=== PATIENT | female | born 1995 | race Caucasian/White ===

== ENCOUNTER 2021-11-23 18:57 | Emergency (ER) | payer OTHER, SELFPAY ==
[2021-11-23 19:01] VITALS: BP 127/88; PULSE 99; RESP 16; TEMP 36.3; O2SAT 99
--- NOTE | 2021-11-23 19:27 | ED.GENADULT ---
HPI - General Adult General Chief complaint: Headache Stated complaint: headache Time Seen by Provider: 11/23/21 19:17 History of Present Illness HPI narrative: Patient is a 26-year-old female who presents ER with headache. Left-sided throbbing and aching. Ongoing for 2 weeks. No photophobia or phonophobia. No history of migraines. No trauma. Endorses mild sinus congestion. No ringing in the ears or dizziness. No nausea or vomiting. She has no upper or lower extremity numbness or tingling. She has tried taking extra strength Tylenol without improvement. Patient took test yesterday and discovered that she is in fact . LMP 4 to 6 weeks ago. She is a G3, P2. She had Depo-Provera injection 8 months ago and has had irregular periods since then. Related Data Allergies Allergy/AdvReac Type Severity Reaction Status Date / Time amoxicillin AdvReac Hives Verified 11/23/21 19:05 Review of Systems Review of Systems: All systems reviewed & are unremarkable except as noted in HPI and below Constitutional: Constitutional: Denies chills and Denies fever(s) ENT: Denies dizziness, Reports nasal congestion and Denies sore throat Respiratory: Respiratory: Denies cough and Denies dyspnea Gastrointestinal: Gastrointestinal: Denies abdominal pain, Denies diarrhea, Denies nausea and Denies vomiting Genitourinary: Genitourinary: Denies abnormal vaginal bleeding, Denies nocturia, Denies dysuria and Denies flank pain Neurologic: Denies dizziness, Denies syncope, Reports headache(s), Denies focal weakness and Denies numbness PMFSH Past Medical History Medical History (Updated 11/23/21 @ 21:39 by Giovanni Dahl MD) Healthy female adult Surgical History Surgical History (Updated 11/23/21 @ 20:39 by Giovanni Dahl MD) No history of previous surgery Social History Social History (Updated 11/23/21 @ 20:39 by Giovanni Dahl MD) Smoking status: Current every day smoker Exam Narrative: GENERAL: Well-appearing, well-nourished, and in no acute distress. HEAD: Normocephalic, atraumatic. ENT: Mucous membranes moist. NECK: Supple. CHEST: Clear to auscultation. No respiratory distress. HEART: Regular rate and rhythm. Normal peripheral pulses. EXTREMITIES: Normal range of motion. No edema. SKIN: Warm, dry, no rash. NEURO: No focal deficits. Alert and oriented x3. PSYCH: Normal mood and affect. Course Course Emergency Course: Patient resting comfortably. Headache now 2/10 after Tylenol and fluids. Labs unremarkable. Discharge home. Vital Signs Vital signs: Vital Signs Temperature 97.4 F L 11/23/21 19:01 Pulse Rate 99 11/23/21 19:01 Respiratory Rate 16 11/23/21 19:01 Blood Pressure 127/88 11/23/21 19:01 Pulse Oximetry 99 11/23/21 19:01 Oxygen Delivery Room Air 11/23/21 19:01 Temperature 97.4 F L 11/23/21 19:01 Pulse Rate 99 11/23/21 19:01 Respiratory Rate 16 11/23/21 19:01 Blood Pressure 127/88 11/23/21 19:01 Pulse Oximetry 99 11/23/21 19:01 Oxygen Delivery Room Air 11/23/21 19:01 Medical Decision Making Vital Signs Vital Signs: Vital Signs Temperature 97.4 F L 11/23/21 19:01 Pulse Rate 99 11/23/21 19:01 Respiratory Rate 16 11/23/21 19:01 Blood Pressure 127/88 11/23/21 19:01 Pulse Oximetry 99 11/23/21 19:01 Oxygen Delivery Room Air 11/23/21 19:01 Temperature 97.4 F L 11/23/21 19:01 Pulse Rate 99 11/23/21 19:01 Respiratory Rate 16 11/23/21 19:01 Blood Pressure 127/88 11/23/21 19:01 Pulse Oximetry 99 11/23/21 19:01 Oxygen Delivery Room Air 11/23/21 19:01 Lab Data Result diagrams: 11/23/21 20:51 Labs: Lab Results 11/23/21 Range/Units 20:51 Sodium 137 (137-145) mmol/L Potassium 3.9 (3.4-5.0) mmol/L Chloride 106 (98-107) mmol/L Carbon Dioxide 23 (22-30) mmol/L Anion Gap 8 (8-16) mmol/L BUN 9 (7-17) mg/dL Creatinine 0.50 L (0.7-1.0) mg/dL Es
[2021-11-23] MEDS: ACETAMINOPHEN 500 MG TABLET 1000 MG PO (20:10)
[2021-11-23] MEDS: SODIUM CHLORIDE 0.9% IV 1,000 ML 999 ML IV CONT (20:10)
[2021-11-23 21:09] LABS: Anion Gap 8 mmol/L (8-16); Blood Urea Nitrogen 9 mg/dL (7-17); Calcium 8.7 mg/dL (8.4-10.2); Carbon Dioxide 23 mmol/L (22-30); Chloride 106 mmol/L (98-107); Estimated CRCL calculation 175 ml/min; Estimated Glomerular Filt Rate > 60; Glucose 90 mg/dL (65-110); Potassium 3.9 mmol/L (3.4-5.0); Sodium 137 mmol/L (137-145)
== END 2021-11-23 21:49 | disposition home or self-care (01) ==
PROVIDERS: Emergency Provider Emergency Medicine
DX: O26.891 Other specified pregnancy related conditions, first trimester (principal); R51.9 Headache, unspecified; O99.331 Smoking (tobacco) complicating pregnancy, first trimester; F17.200 Nicotine dependence, unspecified, uncomplicated; Z3A.00 Weeks of gestation of pregnancy not specified
CPT/HCPCS: 36415; 80048; 81025; 96360; 99283; A9270; J7030

== ENCOUNTER 2022-01-19 11:43 | Emergency (ER) | payer OTHER, SELFPAY ==
[2022-01-19 11:53] VITALS: BP 133/76; PULSE 116; RESP 18; TEMP 37.4; O2SAT 98
[2022-01-19 11:57] VITALS: O2SAT 100
--- NOTE | 2022-01-19 12:01 | ED.HA ---
HPI - Headache General Chief Complaint: Headache Stated Complaint: HEADACHE DIZZY BODY ACHES Time Seen by Provider: 01/19/22 11:54 Source: patient and RN notes reviewed Mode of arrival: ambulatory Limitations: no limitations History of Present Illness MD elicited complaint: headache Onset (ago): week(s) (2) Onset description: gradually Location: generalized Severity: moderate Quality & Timing: throbbing Exacerbating factors: light and noise Relieving factors: nothing Context: occurred at rest Associated symptoms: malaise Treatments prior to arrival: none Related Data Allergies Allergy/AdvReac Type Severity Reaction Status Date / Time amoxicillin AdvReac Hives Verified 01/19/22 11:56 Review of Systems Review of Systems: All systems reviewed & are unremarkable except as noted in HPI and below Constitutional: Constitutional: Reports chills ( started yesterday) Respiratory: Respiratory: Denies cough Gastrointestinal: Gastrointestinal: Denies nausea Musculoskeletal: Musculoskeletal: Reports myalgias (Started yesterday) [facility] Past Medical History Medical History (Updated 01/19/22 @ 13:15 by Valdez Talavera MD) Healthy female adult Surgical History Surgical History (Updated 11/23/21 @ 20:39 by Giovanni Dahl MD) No history of previous surgery Social History Social History (Updated 11/23/21 @ 20:39 by Giovanni Dahl MD) Smoking status: Current every day smoker Exam Const: General: healthy appearing and ill appearing acutely Nutritional Appearance: well nourished Orientation/consciousness: patient oriented x3 Limitations: no limitations Other: 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 HENMT: Head: normal to inspection Ears: external ears normal Eyes: Conjunctivae: conjunctivae normal Pupils: Equal, round and reactive pupils present EOM: EOMs intact bilaterally Neck: Neck: normal visual inspection Resp: Effort & Inspection: normal respiratory effort Auscultation: clear to auscultation bilaterally Cardio: Rate: regular rate Rhythm: regular rhythm GI: GI Palp: Yes Soft to palpation and No Tenderness to palpation present (GI) Auscultation: normal bowel sounds Back/Spine/Pelvis: Cervical Spine: cervical ROM normal Thoracic/Lumbar Spine: thoraco-lumbar ROM normal Skin: General skin exam: normal color Rashes: no rashes Neuro: General: patient oriented x3, moves all extremities, no focal motor deficits and CN's II-XI intact bilaterally Speech: normal speech Gait exam (Neuro): Normal gait present Extrem: General: normal to inspection and no clubbing, cyanosis or edema Psych: Mental Status: mental status grossly normal Affect: normal affect Attitude: cooperative Course Course Emergency Course: Patient drove herself here so was not able to give her Zofran or Benadryl due to its sedative properties. She is encouraged to use some Benadryl at home to help her sleep get rid of her migraine. Vital Signs Vital signs: Vital Signs Temperature 37.4 C 01/19/22 11:53 Pulse Rate 116 H 01/19/22 11:53 Respiratory Rate 18 01/19/22 11:53 Blood Pressure 133/76 01/19/22 11:53 Pulse Oximetry 98 01/19/22 11:53 Oxygen Delivery Room Air 01/19/22 11:53 Temperature 37.3 C 01/19/22 13:19 Pulse Rate 113 H 01/19/22 13:19 Respiratory Rate 16 01/19/22 13:19 Blood Pressure 121/66 01/19/22 13:19 Pulse Oximetry 98 01/19/22 13:19 Oxygen Delivery Room Air 01/19/22 13:19 MDM - Headache Lab Data Labs: Lab Results 01/19/22 Range/Units 12:05 Influenza A (RT-PCR) Negative (Negative) Influenza B (RT-PCR) Negative (Negative) SARS-CoV-2 RNA (RT-PCR) Positive A (Negative) Discharge Plan Discharge Clinical Impression: COVID-19 Headache Qualifiers: Headache type: tension-type Headache chronicity pattern: acute headache Intractability: intractable Qualified Code(s): G44.201 - Tension-type headache, unspecified, intractable
[2022-01-19] MEDS: KETOROLAC 30 MG/ML VIAL (*BKC) IM (12:29)
[2022-01-19 12:45] LABS: Influenza A QL RT-PCR Negative (Negative); Influenza B QL RT-PCR Negative (Negative); SARS-CoV-2 RNA PCR Positive (Negative)
[2022-01-19 13:19] VITALS: BP 121/66; PULSE 113; RESP 16; TEMP 37.3; O2SAT 98
== END 2022-01-19 13:23 | disposition home or self-care (01) ==
PROVIDERS: Emergency Provider Emergency Medicine
DX: U07.1 COVID-19 (principal); G44.201 Tension-type headache, unspecified, intractable
CPT/HCPCS: 87502; 96372; 99283; C9803; J1885; U0003; U0005